=== PATIENT | female | born 1990 | race Caucasian/White ===

== ENCOUNTER 2020-12-30 17:59 | Emergency (ER) | payer BC ==
[~2020-12-30] VITALS: Ht 162.6 cm; Wt 81.8 kg
[2020-12-30 18:08] VITALS: Ht 162.6 cm; Wt 81.8 kg
[2020-12-30] MEDS ORDERED: STERAPRED DS 1010 MG PO (20:02)
[2020-12-30 20:25] VITALS: BP 146/88
== END 2020-12-30 20:35 | disposition home or self-care (01) ==
LOC: D.ER 17:59
DX: L23.7 Allergic contact dermatitis due to plants, except food (principal); J30.2 Other seasonal allergic rhinitis